=== PATIENT | male | born 1935 | race Caucasian/White ===

== ENCOUNTER 2016-10-15 06:20 | Inpatient (IN) ==
[2016-10-11 15:45] LABS: Basophils # (Auto) 0 K/mcL (0.0-0.3); Basophils % (Auto) 0.6 % (0.0-2.0); Eosinophils # (Auto) 0.3 K/mcL (0.0-0.7); Eosinophils % (Auto) 9.2 % (0.0-7.0); Granulocytes % (Auto) 58.3 % (38.0-78.0); Lymphocytes # (Auto) 0.7 K/mcL (1.5-4.8); Lymphocytes % (Auto) 17.2 % (15.5-49.0); Mean Cell Volume 93.2 fL (80.0-100.0); Mean Corpuscular HGB Conc 34.1 g/dL (31.0-36.0); Mean Corpuscular Hemoglobin 31.8 pg (26.0-34.0); Monocytes # (Auto) 0.6 K/mcL (0.1-0.9); Monocytes % (Auto) 14.7 % (1.0-12.0); Platelet Count 179 K/mcL (140-440); RBC 3.32 M/mcL (4.50-5.90); Red Cell Distribution Width 13.6 % (11.5-14.5)
[2016-10-11 16:02] LABS: Blood Urea Nitrogen 32 mg/dl (8-23)
[~2016-10-15 06:20] MED LIST: ACETAMINOPHEN 500 MG TABLET PO SCH; CELECOXIB 200 MG CAPSULE PO SCH; PREGABALIN 75 MG CAPSULE PO SCH; ceFAZolin 1 GM VIAL IV SCH; oxyCODONE 10 MG TAB.ER.12H PO SCH
[2016-10-15 07:41] LABS: Appearance,Urine CLEAR; Bilirubin,Urine NEG (NEG); Color,Urine YELLOW; Glucose,Urine (UA) NEGATIVE (NEG); Leukocyte Esterase,Urine NEG /uL (NEG); Nitrate,Urine NEG (NEG); Protein,Urine NEG (NEG); Specific Gravity,Urine 1.013 (1.000-1.035); Urine Blood NEG mg/dL (<0.03); Urobilinogen,Urine NEG (NEG)
[2016-10-15] MEDS ORDERED: KETOROLAC 30 MG, ROPIVACAINE HCL/PF 49.5 ML, EPINEPHrine 0.5 MG, 0.9 % SODIUM CHLORIDE ... IJ ONE (08:00)
[2016-10-15] MEDS ORDERED: SCOPOLAMINE 1 PATCH PATCH TOPICAL ONE (08:47)
[2016-10-15] MEDS ORDERED: TRANEXAMIC ACID 1,000 MG/10 ML VIAL IV ONE ×2 (09:10→10:58)
[2016-10-15] MEDS ORDERED: GLYCOPYRROLATE 0.2 MG/ML VIAL IV ONE (09:10)
[2016-10-15] MEDS ORDERED: LIDOCAINE HCL/PF 100 MG/5 ML SYRINGE IV ONE (09:10)
[2016-10-15] MEDS ORDERED: PROPOFOL 200 MG/20 ML VIAL IV ONE (09:10)
[2016-10-15] MEDS ORDERED: KETAMINE 100 MG/ML ML IV ONE (09:10)
[2016-10-15] MEDS ORDERED: PHENYLEPHRINE 10 MG/ML VIAL IV ONE (09:10)
[2016-10-15] MEDS ORDERED: DEXAMETHASONE 10 MG/ML VIAL IV ONE (09:10)
[2016-10-15] MEDS ORDERED: fentaNYL 100 MCG/2 ML VIAL IV ONE (09:10)
[2016-10-15] MEDS ORDERED: ONDANSETRON 4 MG/2 ML VIAL IV ONE (09:10)
[2016-10-15] MEDS ORDERED: MIDAZOLAM 5 MG/5 ML VIAL IV ONE (09:10)
[2016-10-15] MEDS ORDERED: ROPIVACAINE HCL/PF 30 ML VIAL IJ ONE (09:10)
[2016-10-15] MEDS ORDERED: GENTAMICIN SULFATE 800 MG/20 ML VIAL IR ONE (09:40)
[2016-10-15] MEDS ORDERED: METOPROLOL TARTRATE 5 MG/5 ML VIAL IV PRN (10:45)
[2016-10-15] MEDS ORDERED: MEPERIDINE 25 MG/ML SYRINGE IV PRN (10:45)
[2016-10-15] MEDS ORDERED: BENZOCAINE/MENTHOL 1 LOZENGE PO PRN ×2 (10:45→10:58)
[2016-10-15] MEDS ORDERED: METHOCARBAMOL 1,000 MG/10 ML VIAL IV PRN (10:45)
[2016-10-15] MEDS ORDERED: PROMETHAZINE 25 MG/ML VIAL IV PRN (10:45)
[2016-10-15] MEDS ORDERED: LACTATED RINGERS 1,000 ML IV SCH (10:45)
[2016-10-15] MEDS ORDERED: IPRATROPIUM/ALBUTEROL 3 ML AMPUL.NEB NEB PRN (10:45)
[2016-10-15] MEDS ORDERED: ePHEDrine 50 MG/ML AMPUL IV PRN (10:45)
[2016-10-15] MEDS ORDERED: POLYETHYLENE GLYCOL 3350 17 GM PACKET PO PRN (10:58)
[2016-10-15] MEDS ORDERED: MAGNESIUM HYDROXIDE 30 ML ORAL.SUSP PO PRN (10:58)
[2016-10-15] MEDS ORDERED: TEMAZEPAM 15 MG CAPSULE PO PRN (10:58)
[2016-10-15] MEDS ORDERED: ONDANSETRON 4 MG/2 ML VIAL IV PRN (10:58)
[2016-10-15] MEDS ORDERED: BISACODYL 10 MG SUPP.RECT PR PRN (10:58)
[2016-10-15] MEDS ORDERED: FLEETS ADULT ENEMA PR PRN (10:58)
--- NOTE | 2016-10-15 10:58 | Brief Operative Note ---
Date of procedure: 10/15/16 Pre-op diagnosis: Left knee djd severe Post-op diagnosis: same Procedure: Left TKA with bjorn robot Grafts/Implants: Yes Anesthesia: MIRACLEA Surgeon: Mk Shaw [place] Commissioner: Renny Pickard Estimated blood loss (cc): 20 Tourniquet Time (Minutes): 57 Specimens Removed/Pathology: none sent Condition: stable Disposition: PACU
[2016-10-15] MEDS ORDERED: CARISOPRODOL 350 MG TABLET PO PRN ×2 (11:00→11:15)
[2016-10-15] MEDS ORDERED: TURMERIC ROOT EXTRACT 500 MG PO PRN (11:00)
[2016-10-15] MEDS ORDERED: ACETAMINOPHEN 500 MG TABLET PO PRN (11:00)
[2016-10-15] MEDS: fentaNYL 100 MCG/2 ML VIAL IV PRN ×3 (11:10→11:20)
--- NOTE | 2016-10-15 11:27 | Operative Note ---
DATE OF OPERATION: 10/15/2016 PREOPERATIVE DIAGNOSIS: Left knee degenerative arthritis in all three compartments. POSTOPERATIVE DIAGNOSIS: Left knee degenerative arthritis in all three compartments. PROCEDURE: Left total knee arthroplasty using the KINJAL robot and [place] components. Both components were cemented. SURGEON: Mk Shaw MD. HOUSEKEEPING SUPERVISOR: Renny Pickard PA-C. ANESTHESIA: General LMA anesthesia. TOURNIQUET TIME: 57 minutes. IMPLANTS PLACED: A size 5 femur, size 4 tibial baseplate with a 9 mm poly insert, 36 mm patellar button. ESTIMATED BLOOD LOSS: 20 mL. DESCRIPTION OF PROCEDURE: The patient was brought to the operating room and put to sleep with general LMA anesthesia. Once asleep, the patient had the left leg sterilely prepped and draped in the usual sterile fashion. We confirmed this as the operative site, both by x-ray and initials and a timeout. With all three confirmed, we proceeded with a left robotic total knee arthroplasty. We placed a midline incision, a mid vastus approach performed. Two pins above and below the knee were placed with an array. We centered the hip rotation, registered the medial and lateral malleoli. We registered intra-articular pins on the tibia and femur, 30 points on the femur, 30 points were registered on the tibia. We then balanced the knee, both at 15 degrees and 90 degrees of flexion. Once this was perfectly balanced, rotating the components, soft tissue releases, we then proceeded to bring in the robot. We registered the robot, made our distal femoral cut and posterior chamfer cut. We reregistered the new blade on the robot. The anterior and posterior cuts were made and anterior chamfer cut made. We then made our tibial cut after registering the tibia and the saw blade. These bony fragments were removed, preserved the posterior cruciate ligament, removing the meniscus and all bony fragments. Any spurs posteriorly were removed and cysts were removed. We then set rotation of the tibial baseplate with a probe and the robot. We then placed the tibial baseplate that was punched into place. We then placed a poly liner and trialed the femur. This seemed to balance very well with a 9 component in both flexion, extension and mid flexion was very stable. We irrigated. We then cemented into place, both the size 4 tibial baseplate, size 5 femur. A 9 mm poly and a 36 mm patellar button after cutting the patella to 13 mm thickness. We irrigated thoroughly and after components were all cemented and dried, we then removed any excess cement again, and thoroughly washed the knee. We then closed the medial capsule with a barbed suture, and then closed the portals with 4-0 nylon, closed the capsule with 2-0 Vicryl and adhesive closure. The patient tolerated this well. There was no complication. Tourniquet deflated at 57 minutes. RBH:darci Job ID: [id number] Doc ID: [id number] Mk Shaw MD
[2016-10-15] MEDS: HYDROmorphone 2 MG/ML SYRINGE IV PRN ×3 (11:34→20:37)
--- NOTE | 2016-10-15 11:55 | XRay Report ---
HISTORY: Reason for Exam:Post-Op Total Knee FINDINGS: There is a well-positioned left total knee prosthesis. There is no fracture. There are dystrophic calcifications in the quadriceps tendon just above the patella. Densely calcified plaques are present in the popliteal and superficial femoral arteries. IMPRESSION: Well-positioned left knee prosthesis Interpreted and Authenticated by: Alec Castro 10/15/16
[2016-10-15] MEDS: KETOROLAC 15 MG/ML VIAL IV SCH ×2 (12:34→17:16)
[2016-10-15] MEDS: oxyCODONE HCL 5 MG TABLET PO PRN ×2 (12:37→20:33)
[2016-10-15] MEDS: 0.45 % SODIUM CHLORIDE 1,000 ML IV SCH (13:57)
[2016-10-15] MEDS: 0.9 % SODIUM CHLORIDE 10 ML SYRINGE IV SCH ×2 (14:00→20:43)
[2016-10-15] MEDS: ACETAMINOPHEN 325 MG TABLET PO PRN (17:16)
[2016-10-15] MEDS: ceFAZolin 1 GM VIAL IV SCH (17:34)
[2016-10-15] MEDS: SENNOSIDES 1 TABLET PO SCH (20:32)
[2016-10-15] MEDS: DOCUSATE SODIUM 100 MG CAPSULE PO SCH (20:33)
[2016-10-15] MEDS: DOXAZOSIN 4 MG TABLET PO SCH (20:34)
[2016-10-15] MEDS: ASPIRIN 325 MG ENTERIC COATED TABLET PO SCH (20:35)
[2016-10-15] MEDS: MEMANTINE 10 MG TABLET PO SCH (20:35)
[2016-10-15] MEDS: MULTIVIT,THER IRON,CA,FA & MIN 1 TABLET PO SCH (20:35)
[2016-10-15] MEDS: ATORVASTATIN 20 MG TABLET PO SCH (20:43)
[2016-10-16] MEDS: KETOROLAC 15 MG/ML VIAL IV SCH ×5 (00:08→23:46)
[2016-10-16] MEDS: oxyCODONE HCL 5 MG TABLET PO PRN ×5 (01:16→23:42)
[2016-10-16] MEDS: ceFAZolin 1 GM VIAL IV SCH (01:17)
[2016-10-16] MEDS: 0.45 % SODIUM CHLORIDE 1,000 ML IV SCH ×3 (03:46→15:02)
[2016-10-16] MEDS: HYDROCODONE/APAP 7.5/325MG TABLET PO PRN ×4 (04:11→20:46)
[2016-10-16] MEDS: 0.9 % SODIUM CHLORIDE 10 ML SYRINGE IV SCH ×3 (05:14→22:21)
[2016-10-16] MEDS: DOCUSATE SODIUM 100 MG CAPSULE PO SCH ×2 (07:25→20:45)
[2016-10-16] MEDS: LEVOTHYROXINE 25 MCG TABLET PO SCH (07:25)
[2016-10-16] MEDS: PANTOPRAZOLE 40 MG TABLET PO SCH (07:25)
[2016-10-16] MEDS: FISH OIL 1,000 MG CAPSULE PO SCH (08:32)
[2016-10-16] MEDS: CALCIUM (OYSTER SHELL) 500 MG TABLET PO SCH (08:32)
[2016-10-16] MEDS: FERROUS SULFATE 325 MG TABLET PO SCH (08:32)
[2016-10-16] MEDS: ASPIRIN 325 MG ENTERIC COATED TABLET PO SCH ×2 (08:32→20:49)
[2016-10-16] MEDS: amLODIPine 10 MG TABLET PO SCH (08:32)
[2016-10-16] MEDS: CELECOXIB 200 MG CAPSULE PO SCH (08:32)
[2016-10-16] MEDS: MEMANTINE 10 MG TABLET PO SCH ×2 (08:33→20:45)
[2016-10-16] MEDS: MULTIVIT,THER IRON,CA,FA & MIN 1 TABLET PO SCH ×2 (08:33→20:45)
[2016-10-16] MEDS: CITALOPRAM 20 MG TABLET PO SCH (08:33)
[2016-10-16] MEDS: MAGNESIUM OXIDE 400 MG TABLET PO SCH (08:33)
[2016-10-16] MEDS: ASCORBIC ACID 500 MG TABLET PO SCH (08:33)
[2016-10-16] MEDS: LOSARTAN 50 MG TABLET PO SCH (08:33)
[2016-10-16] MEDS: TAMSULOSIN 0.4 MG CAPSULE PO SCH (08:33)
[2016-10-16] MEDS ORDERED: NON FORMULARY MEDICATION 1 DOSE MISCELL (Aspirin [Adult Low Dose Aspirin Ec] 81 MG) PO SCH (09:00)
--- NOTE | 2016-10-16 10:28 | Orthopedic Progress Note ---
Subjective Patient information: Note initiated : 10/16/16 at 10:26 am Service Date, if different from initiated Date: [] Patient: Chris Cisse 80 y/o M admitted on 10/15/16 for Robotic Left Total Knee Arthroplasty. Chief Complaint: [confused and with difficulty with urination 3 times] Objective Vital signs: Vital Signs Temp Pulse Pulse Resp BP BP Pulse Ox 10/16/16 07:39 81 75 10/16/16 06:22 98.1 F 20 103/64 92 10/16/16 05:15 93 10/16/16 03:41 97.3 F 81 20 115/65 92 10/16/16 02:00 91 10/16/16 01:00 75 10/15/16 23:30 98.0 F 60 20 90/54 92 10/15/16 22:00 92 10/15/16 19:36 97.9 F 70 18 120/67 93 10/15/16 17:50 94 10/15/16 15:36 92/55 97 10/15/16 14:43 97 10/15/16 13:45 112/64 96 10/15/16 13:15 124/66 95 10/15/16 12:45 114/59 94 10/15/16 12:30 106/62 93 10/15/16 12:15 114/66 89 L 10/15/16 12:00 98 F 16 127/68 92 10/15/16 11:48 85 20 118/66 96 10/15/16 11:44 98.9 F 85 17 115/56 96 10/15/16 11:35 90 21 122/84 95 10/15/16 11:25 89 14 105/44 91 10/15/16 11:17 89 15 105/39 98 10/15/16 11:12 90 15 114/56 99 10/15/16 11:07 97.8 F 87 12 120/64 94 Intake and Output 10/15/16 10/16/16 10/16/16 21:59 05:59 13:59 Intake Total 900 / 900 1100 / 1100 Output Total 420 / 420 250 / 250 Balance 480 / 480 850 / 850 Intake: IV 1000 / 1000 Sodium Chloride 0.45% 1, 1000 / 1000 000 ml @ 100 mls/hr IV . Q10H [facility] Rx#:[id number] Oral 720 / 720 100 / 100 GI Tube Flush 180 / 180 Output: Urine Catheter Amount 420 / 420 250 / 250 Other: Meal Dinner Breakfast Percent of Meal Consumed 75% 100% Feeding Ability Independent Independent Weight 180 lb Intake & Output: Intake & Output 10/15/16 10/16/16 10/16/16 21:59 05:59 13:59 Intake Total 900 / 900 1100 / 1100 Output Total 420 / 420 250 / 250 Balance 480 / 480 850 / 850 Weight 180 lb Intake: IV 1000 / 1000 Sodium Chloride 0.45% 1, 1000 / 1000 000 ml @ 100 mls/hr IV . Q10H [facility] Rx#:[id number] Oral 720 / 720 100 / 100 GI Tube Flush 180 / 180 Output: Urine Catheter Amount 420 / 420 250 / 250 Other: Meal Dinner Breakfast Percent of Meal Consumed 75% 100% Feeding Ability Independent Independent Incision: Yes healing Incision clean and dry: Yes Dressing: Yes clean Weight bearing status: full Neurological exam IM: Yes reflexes normal, Yes neurovascular intact Extremities exam IM: Yes Foot pink and warm (dc home once less confused in am and start yen), Yes neurovascular intact - Labs CBC & BMP: 10/16/16 04:33 10/11/16 15:00 Labs: Orthopedic Labs 10/15/16 06:43 PT 13.7 INR 1.0 10/16/16 10/11/16 04:33 15:00 Hgb 10.6 L Hct 26.8 L 31.0 L
--- NOTE | 2016-10-16 10:33 | Discharge Summary ---
Ortho Discharge - TSA - Patient Instructions Diet: Regular Diet Activity: activity as tolerated, weight bearing as tolerated Total Shoulder Protocol: Leave immobilizer in place except for bathing and ROM. Abduction pillow. Continue to wear sling until seen by physician. Codman Pendulum : These exercises use momentum produced by your body to move your shoulder joint. Bend your knees and shift your weight to your front leg, then back, allowing your arm to swing in the same directions. Using the same technique, alternately shift your weight between your right and left legs, allowing your arm to swing from side to side. These exercises are also performed in counterclockwise and clockwise circular motions. Typically these exercises are performed several times per day, for a set number repetitions or minutes, such as 20 times in a row or 5 minutes at a time. Dressing Care: Tomiel Ag - leave on for 5 days Patient Education: Total Knee Replacement (DC) Additional Instructions: Discharge Instructions: Do the exercises at home that physical therapy gave you. You are scheduled to start physical therapy at [facility] ([phone]) on October 18 @ 9:00 am, please arrive 15 minutes early for paperwork. Your orders will be faxed to them. Take your photo ID, insurance cards, and current medication list with you to your first physical therapy appointment. Take your prescription to sisal picker any medication or equipment (such as walker, crutches, toilet riser or C.P.M.) Wear comfortable clothing for your physical therapy. Weight bearing as tolerated. You have Dermabond (a dressing with a mesh-like appearance), leave open to air. Do not remove this dressing. You may start showering on post op day #2. The Dermabond dressing can get wet, do not scrub dressing. Pat dry. To avoid constipation while taking any narcotic pain medication, take an over the counter stool softener/laxative. Use your Cryocuff or ice packs as directed, on for 20 minutes at a time throughout the day. This and elevation will help with pain and swelling. Call your physician for fevers above 100.5 or pain not controlled by medication. Your prescriptions are with your discharge information. Some medications were electronically transmitted to your pharmacy of choice. - Follow Up Plan Follow Up Appointments: Mk Shaw MD [Physician] - 10/28/16 3:50 pm Disposition: Home, Self-Care Prognosis: Good Rehab Potential: Good I certify that the patient requires SNF services: No Overall status at discharge: patient is progressing back to baseline - Orders For Discharge Additional Discharge Orders: Physical Therapy at Discharge - TKA Location: Determined By Patient Toilet Riser Discharge Order Location: Determined By Patient Walker Location: Determined By Patient
[2016-10-16] MEDS: CYANOCOBALAMIN PO SCH (10:55)
[2016-10-16] MEDS: LACTOBACILLUS 1 CAPSULE PO SCH (10:55)
[2016-10-16] MEDS: UBIDECARENONE 300 MG PO SCH (10:55)
[2016-10-16] MEDS: DOXAZOSIN 4 MG TABLET PO SCH (20:46)
[2016-10-16] MEDS: SENNOSIDES 1 TABLET PO SCH (20:46)
[2016-10-16] MEDS: ATORVASTATIN 20 MG TABLET PO SCH (20:49)
[2016-10-17] MEDS: oxyCODONE HCL 5 MG TABLET PO PRN ×2 (05:14→09:20)
[2016-10-17] MEDS: 0.9 % SODIUM CHLORIDE 10 ML SYRINGE IV SCH (05:15)
[2016-10-17] MEDS: KETOROLAC 15 MG/ML VIAL IV SCH (05:36)
[2016-10-17] MEDS: PANTOPRAZOLE 40 MG TABLET PO SCH (07:27)
[2016-10-17] MEDS: LEVOTHYROXINE 25 MCG TABLET PO SCH (07:27)
[2016-10-17] MEDS: ACETAMINOPHEN 325 MG TABLET PO PRN (09:04)
[2016-10-17] MEDS: CALCIUM (OYSTER SHELL) 500 MG TABLET PO SCH (09:07)
[2016-10-17] MEDS: MULTIVIT,THER IRON,CA,FA & MIN 1 TABLET PO SCH (09:08)
[2016-10-17] MEDS: LOSARTAN 50 MG TABLET PO SCH (09:08)
[2016-10-17] MEDS: amLODIPine 10 MG TABLET PO SCH (09:09)
[2016-10-17] MEDS: FERROUS SULFATE 325 MG TABLET PO SCH (09:09)
[2016-10-17] MEDS: ASPIRIN 325 MG ENTERIC COATED TABLET PO SCH (09:09)
[2016-10-17] MEDS: DOCUSATE SODIUM 100 MG CAPSULE PO SCH (09:10)
[2016-10-17] MEDS: TAMSULOSIN 0.4 MG CAPSULE PO SCH (09:10)
[2016-10-17] MEDS: MEMANTINE 10 MG TABLET PO SCH (09:11)
[2016-10-17] MEDS: FISH OIL 1,000 MG CAPSULE PO SCH (09:11)
[2016-10-17] MEDS: CELECOXIB 200 MG CAPSULE PO SCH (09:11)
[2016-10-17] MEDS: CITALOPRAM 20 MG TABLET PO SCH (09:11)
[2016-10-17] MEDS: LACTOBACILLUS 1 CAPSULE PO SCH (09:12)
[2016-10-17] MEDS: UBIDECARENONE 300 MG PO SCH (09:22)
[2016-10-17] MEDS: CYANOCOBALAMIN PO SCH (09:22)
[2016-10-17] MEDS: MAGNESIUM OXIDE 400 MG TABLET PO SCH (09:22)
[2016-10-17] MEDS: ASCORBIC ACID 500 MG TABLET PO SCH (09:59)
== END 2016-10-17 11:10 | disposition home or self-care (01) | DRG 470 ==
LOC: MEDSUR 06:20
PROVIDERS: ADMIT Orthopaedic Surgery; ATTEND Orthopaedic Surgery